=== PATIENT | female | born 1995 | race African-American/Black ===

== ENCOUNTER 2019-05-29 16:34 | Emergency (ER) | payer OTHER ==
[~2019-05-29] VITALS: Ht 165.1 cm; Wt 64.0 kg
[~2019-05-29 16:34] MED LIST: AMOXICILLIN 50500 MG PO; HYDROCODONE-AP1 EAC6 PO; KEFLEX500 MG PO
[2019-05-29] MEDS ORDERED: IBUPROFEN 600600 M1 PO (18:10)
[2019-05-29] MEDS ORDERED: VENTOLIN HFA 1818 GM INH (18:10)
[2019-05-29] MEDS ORDERED: TESSALON PERLE100 MG PO (18:10)
[2019-05-29 19:00] VITALS: BP 132/87
== END 2019-05-29 19:01 | disposition home or self-care (01) ==
LOC: ER 16:34
DX: J06.9 Acute upper respiratory infection, unspecified (principal); J98.01 Acute bronchospasm; R10.13 Epigastric pain